=== PATIENT | female | born 1965 | race African-American/Black ===

== ENCOUNTER 2016-04-21 18:35 | Emergency (ER) | payer OTHER ==
[~2016-04-21] VITALS: Ht 162.6 cm; Wt 58.1 kg
--- NOTE | ~2016-04-21 | EKG ---
[address] [address] [place] [address] ELECTROCARDIOGRAM REPORT Name: VALENTE NINO [facility]: [facility]IESNarendra[facility] [id number] Admission: 04/21/16 Attend Phys: Discharge: 04/21/16 Date of : 63 Report #: [id number] THIS REPORT FOR: //name// [facility] ED Test Date: 2016-04-21 Test Time: 18:59:26 Pat Name: VALENTE NINO Department: Room: Gender: F Back Line Cook: JULES : 1965 Requested By: Donny Keating Order Number: [id number] MD: Alberto Wadsworth Measurements Intervals [place] Rate: 95 P: -9 CA: 165 QRS: -14 QRSD: 93 T: 38 QT: 348 QTc: 438 Interpretive Statements Sinus rhythm RSR' in V1 or V2, right VCD or RVH Nonspecific ST and T wave abnormality Baseline wander in lead(s) II,III,aVR,aVF No previous ECG available for comparison Electronically Signed On 04-22-2016 9:01:35 PAYMENT SPECIALIST by Alberto Wadsworth [email or web address] <ELECTRONICALLY SIGNED> By: Alberto Wadsworth MD, [facility] 04/22/16 0901 1859 1859 Alberto Wadsworth MD, [facility] /EPI
[~2016-04-21 18:35] MED LIST: B12; B12INJ PO; HYDROCHLOROTH12.5 MG; LEVOTHYROXINE0.05 MG; NORVASC 5 MG TAB5 MG PO; POTASSIUM20 PO; VITAMIN D3400 UNI1 PO
[2016-04-21 19:08] LABS: HEMATOCRIT 35.2 % (37.0-47.0); HEMOGLOBIN 11.8 gm/dL (12.0-15.0); MCH 27.1 pg (26.0-34.0); MCHC 33.6 % (28.0-37.0); MCV 80.8 fL (80.0-100.0); PLATELET COUNT 195 thou/uL (150-400); RBC 4.36 mil/uL (4.20-5.00); RDW 13.3 % (10.5-14.5); WBC 4.8 thou/uL (4.0-11.0)
[2016-04-21 19:18] LABS: ANION GAP 12 mmol/L (7-16); BUN 16 mg/dL (7-18); CALCIUM 9.2 mg/dL (8.5-10.1); CHLORIDE 105 mmol/L (98-107); CO2 27 mmol/L (21-32); GLUCOSE 120 mg/dL (70-99); SODIUM 144 mmol/L (136-145)
[2016-04-21 19:20] LABS: MANUAL DIFF YES
[2016-04-21 19:26] LABS: ALBUMIN 3.8 g/dL (3.4-5.0); ALKALINE PHOSPHATASE 120 U/L (46-116); SGOT 19 U/L (15-37); SGPT 20 U/L (30-65); TOTAL BILIRUBIN 0.5 mg/dL (<0.1-1.0); TOTAL PROTEIN 7.9 g/dL (6.4-8.2); TROPONIN-I < 0.04 ng/mL (<0.04-0.07)
[2016-04-21] MEDS ORDERED: TRAMADOL 50 MG50 MG PO (19:43)
[2016-04-21] MEDS ORDERED: ZOFRAN ODT8 MG PO (19:43)
[2016-04-21] MEDS ORDERED: POTASSIUM20 PO (19:43)
[2016-04-21 20:04] LABS: ABSOLUTE NEUTROPHILS 4.3 thou/uL (1.4-8.2); TOTAL CELL COUNT 100
[2016-04-21 20:29] VITALS: BP 119/76
== END 2016-04-21 20:32 | disposition home or self-care (01) ==
LOC: ER 18:35
PROVIDERS: Emergency Medicine
DX: E87.6 Hypokalemia (principal); R11.2 Nausea with vomiting, unspecified; B34.9 Viral infection, unspecified; R10.9 Unspecified abdominal pain; I10 Essential (primary) hypertension; E89.0 Postprocedural hypothyroidism; Z90.710 Acquired absence of both cervix and uterus; Z88.8 Allergy status to other drugs, medicaments and biological substances